=== PATIENT | male | born 1955 | race Asian ===

== ENCOUNTER → 2016-07-08 | Outpatient (CLI) | payer OTHER ==
--- NOTE | 2016-07-08 13:00 | Diagnostic Imaging Report ---
PROCEDURE: CT abdomen and pelvis without contrast. TECHNIQUE: Multiple contiguous axial images were obtained through the abdomen and pelvis without the use of intravenous contrast. INDICATION: Left lower quadrant pain. FINDINGS: The lung bases demonstrate a nonspecific 5 mm pulmonary nodule in the right middle lobe. Six-month follow-up low-dose CT chest protocol exam is recommended for reassessment. The liver, the gallbladder, the spleen, the pancreas, and the adrenal glands appear unremarkable. The kidneys demonstrate no hydronephrosis. No urinary tract stones. Calcifications in the pelvis are seen compatible with phleboliths. Normal-appearing retrocecal appendix is seen. There is no bowel obstruction. There is no fluid collection or free fluid in the abdomen or pelvis seen. The abdominal aorta is normal in caliber. No para-aortic significantly enlarged lymph nodes are seen. In the inguinal region, there is a soft tissue density lesion seen along the skin and subcutaneous tissue measuring 1.9 x 1.6 x 2 cm. A soft tissue mass or a complicated sebaceous cyst are main differential considerations. The osseous structures appear grossly unremarkable. IMPRESSION: 1. A 2 cm mass in the left inguinal region at the skin and subcutaneous tissue could relate to a neoplasm or potentially a complicated sebaceous cyst. Correlate clinically. Ultrasound of the left inguinal region might be helpful. 2. A 5 mm indeterminate right middle lobe pulmonary nodule near the minor fissure. Follow-up low-dose CT chest without contrast in six months is recommended. Chelitanicholas Guzman, [employer] taking care of the patient, is paged to discuss findings at time of dictation. She is not present at this time, and nurse Herman took the phone call and was informed about the findings in the left inguinal region. Dictated by: Dictated on workstation # [id number]
== END ==
LOC: RAD 10:57
PROVIDERS: ATTEND Nurse Practitioner Family
DX: R10.32 Left lower quadrant pain (principal); R19.04 Left lower quadrant abdominal swelling, mass and lump; R91.1 Solitary pulmonary nodule
CPT/HCPCS: 74176

== ENCOUNTER → 2016-07-20 | Outpatient (CLI) | payer OTHER ==
--- NOTE | 2016-07-20 16:25 | Diagnostic Imaging Report ---
EXAMINATION: Ultrasound of the left inguinal region. INDICATION: Mass seen on the CT scan. The patient indicates that he has had this lesion for 30 years. FINDINGS: There is a 1.7 x 1.4 x 2.3 cm hypodense lesion seen in the subcutaneous tissues along the left inguinal region. No internal vascularity is seen. It is hypoechoic with irregular margins. The exact etiology is uncertain. When compared to 10/01/2015, no definite change is seen. IMPRESSION: Nonspecific hypoechoic mass measuring 2.3 cm along the subcutaneous tissues of the left inguinal region, similar to 10/01/2015. If the patient is confident that it has been present for 30 years without change, then it is presumably benign. Benign etiology cannot be confirmed based on the ultrasound appearance, however. Correlate clinically. Dictated by: Dictated on workstation # [id number]
== END ==
LOC: RAD 13:15
PROVIDERS: ATTEND Nurse Practitioner Family
DX: R19.04 Left lower quadrant abdominal swelling, mass and lump (principal)
CPT/HCPCS: 76881